=== PATIENT | female | born 1995 | race Two or more races ===

== ENCOUNTER 2019-05-15 18:37 | Emergency (ER) | payer SELFPAY ==
[~2019-05-15] VITALS: Ht 170.2 cm; Wt 82.6 kg
[2019-05-15 18:50] VITALS: BP 143/87
--- NOTE | 2019-05-15 19:00 | NUR ---
ED Nurse Note: Patient walked into ED from home c/o right earache since yesterday, 05/14/19. patient reports she took motrin 600mg at 3:3pm today, temperature upon triage was 101.4F. patient is alert awake x4 ambulatory steady gait, breathing unlabored and speaking in full sentences.
--- NOTE | 2019-05-15 19:07 | NUR ---
HAND-OFF: Report given to Karma ELLIOTT. Nicole PERLA at bedside.
--- NOTE | 2019-05-15 19:10 | NUR ---
ED Nurse Note: urine sent to lab
[2019-05-15 19:56] LABS: APPEARANCE,URINE CLEAR; BILIRUBIN, URINE NEGATIVE (NEGATIVE); COLOR,URINE PALE YELLOW; GLUCOSE, URINE (UA) NEGATIVE (NEGATIVE); KETONES,URINE NEGATIVE (NEGATIVE); LEUKOCYTE ESTERASE ,URINE 1+ (NEGATIVE); NITRITE,URINE NEGATIVE (NEGATIVE); PH,URINE 8 (4.5-8.0); PROTEIN,URINE NEGATIVE (NEGATIVE); UROBILINOGEN,URINE NORMAL MG/DL (0.0-1.0)
--- NOTE | 2019-05-15 20:10 | Emergency Room Report ---
History of Present Illness General Chief Complaint: Earache Source: Patient Present Illness HPI 24 YO female presents to the ED c/O 02/16 in severity pain, swelling and tenderness of the right ear since yesterday. Pt. also reports fevers and chills. She states she has been taking Advil every 6 hours, her last dose was approx. 3:30pm today. She also reports urinary frequency and fatigue, She denies abdominal pain, tenderness, N/V, constipation or diarrhea. She denies or suspicion of . Pt. denies ST, cough, BARRON, neck pain/ stiffness, photophobia or mucus production. She denies rashes. Denies ringing of the ears. PT. denies q-tip use or ear d/c. No other aggravating or relieving factors at this time. Allergies: Coded Allergies: No Known Allergies (Unverified , 05/15/19) Patient History Past Medical History: see triage record Past Surgical History: none Pertinent Family History: none Now: No Immunizations: UTD Reviewed Nursing Documentation: PMH: Agreed; PSxH: Agreed Nursing Documentation-PMH Past Medical History: No Stated History Review of Systems All Other Systems: negative except mentioned in HPI Physical Exam Vital Signs Date Time Temp Pulse Resp B/P (MAP) Pulse Ox O2 Delivery O2 Flow Rate FiO2 05/15/19 18:50 101.4 110 18 143/87 99 Room Air Sp02 EP Interpretation: reviewed, normal General Appearance: no apparent distress, alert, GCS 15, non-toxic Head: normocephalic, atraumatic Eyes: bilateral eye normal inspection, bilateral eye PERRL ENT: hearing grossly normal, normal voice, uvula midline, moist mucus membranes , other - RIght canal is swollen, with notable d/c, and external ear tenderness. preauricular LAD. TM is difficult to visualize. Neck: full range of motion, no bony tend Respiratory: lungs clear, normal breath sounds, speaking full sentences Cardiovascular #1: regular rate, rhythm Gastrointestinal: non tender, soft Genitourinary: normal inspection, no CVA tenderness Musculoskeletal: gait/station normal, normal range of motion, non-tender Neurologic: alert, oriented x3, responsive, motor strength/tone normal, sensory intact, speech normal, grossly normal Psychiatric: judgement/insight normal Skin: no rash Lymphatic: other - right preauricular LAD Medical Decision Making PA Attestation Dr. Hernández is my supervising Physician whom patient management has been discussed with. Diagnostic Impression: Primary Impression: Urinary tract infection Qualified Codes: N30.00 - Acute cystitis without hematuria Additional Impression: Otitis externa Qualified Codes: H60.501 - Unspecified acute noninfective otitis externa, right ear ER [facility] QUALITY MEASURES: Pt. with dx of OE was rx'd oral and otic abx because--> TWO TYPES OF BACTERIAL INFECTIONS : UTI as well as RIGHT OE. 24 YO female presents to the ED c/O 02/16 in severity pain, swelling and tenderness of the right ear since yesterday. Pt. also reports fevers and chills. She states she has been taking Advil every 6 hours, her last dose was approx. 3:30pm today. She also reports urinary frequency and fatigue, She denies dysuria, genital lesions, or hematuria. She denies abdominal pain, tenderness, N/V, constipation or diarrhea. She denies or suspicion of . Pt. denies ST, cough, BARRON, neck pain/stiffness, photophobia or mucus production. She denies rashes. Denies ringing of the ears. PT. denies q-tip use or ear d/c. No other aggravating or relieving factors at this time. Ddx considered but are not limited to UTi , Pyelo, STI, Stone, Cystitis, OE/OM, zoster, ear fb just to name a few. Vital signs: Pt. is tachycardic and febrile H&PE are most consistent with: TWO TYPES OF BACTERIAL INFECTIONS : UTI as well as RIGHT OE ORDERS: - UA labs are attached - elevated WBC's with presence of bacteria ED INTERVENTIONS: -Tylenol PO DISCHARGE: At this time pt. is stable for d/c to home. Will provide printed patient care instructions, and any necessary prescriptions. Care plan and follow up instructions have been discussed with the patient prior to discharge. Labs Test 05/15/19 19:25 Urine Color Pale yellow Urine Appearance Clear Urine pH 8 (4.5-8.0) Urine Specific [place] 1.010 (1.005-1.035) Urine Protein Negative (NEGATIVE) Urine Glucose (UA) Negative (NEGATIVE) Urine Ketones Negative (NEGATIVE) Urine Blood Negative (NEGATIVE) Urine Nitrite Negative (NEGATIVE) Urine Bilirubin Negative (NEGATIVE) Urine Urobilinogen Normal MG/DL (0.0-1.0) Urine Leukocyte Esterase 1+ (NEGATIVE) Urine RBC 0-2 /HPF (0 - 2) Urine WBC 5-10 /HPF (0 - 2) Urine Squamous Epithelial Cells Moderate /LPF (NONE/OCC) Urine Bacteria Few /HPF (NONE) Last Vital Signs Date Time Temp Pulse Resp B/P (MAP) Pulse Ox O2 Delivery O2 Flow Rate FiO2 05/15/19 18:50 101.5 110 18 143/87 (105) 99 Room Air Status: improved Disposition: HOME, SELF-CARE Condition: Stable Scripts Ibuprofen* (MOTRIN*) 600 Mg Tablet 600 MG ORAL THREE TIMES A DAY, #30 TAB 0 Refills Prov: Nicole Hanson 05/15/19 Acetaminophen* (TYLENOL EXTRA STRENGTH*) 500 Mg Tablet 500 MG ORAL Q6H, #20 TAB 0 Refills Prov: Nicole Hanson 05/15/19 Cephalexin* (KEFLEX*) 500 Mg Capsule 500 MG ORAL EVERY 12 HOURS for 7 Days, #14 CAP 0 Refills Prov: Nicole Hanson 05/15/19 Ciprofloxacin Hcl/Dexameth (CIPRODEX OTIC SUSPENSION) 7.5 Ml Drops.susp 4 DROP RIGHT EAR TWICE A DAY for 7 Days, #7.5 ML Prov: Nicole Hanson 05/15/19 Referrals: NOT CHOSEN IPA/MD,REFERRING (PCP) Departure Forms: Return to Work Return to Work Date: May 19, 2019 Work Restrictions: None Other Restrictions: May return Sooner if Symptoms have resolved. Return to Full Activity: May 19, 2019 Patient Instructions: Otitis Externa Additional Instructions: Take medications as directed. Follow up with a Primary Care Provider in 3-5 days, even if your symptoms have resolved. Return sooner to ED if new symptoms occur, or current symptoms become worse. - Please note that this Emergency Department Report was dictated using [employer] operator technology software, occasionally this can lead to erroneous entry secondary to interpretation by the dictation equipment. Nicole Hanson May 15, 2019 20:10
[2019-05-15] MEDS ORDERED: CIPRODEX OTIC7.5 M1 RIGHT EAR (20:12)
[2019-05-15] MEDS ORDERED: CEPHALEXIN500 MG ORAL (20:12)
[2019-05-15] MEDS ORDERED: IBUPROFEN600 MG ORAL (20:12)
[2019-05-15] MEDS ORDERED: TYLENOL EXTRA500 MG ORAL (20:12)
[2019-05-15 20:18] VITALS: BP 135/84
--- NOTE | 2019-05-15 20:19 | NUR ---
ER DISCHARGE NOTE: Patient is cleared to be discharged per ERMD, pt is aox4, on room air, with stable vital signs. pt was given dc and prescription instructions, pt was able to verbalize understanding, pt id band removed. pt is able to ambulate with steady gait. pt took all belongings.
== END 2019-05-15 20:19 | disposition home or self-care (01) ==
LOC: EMR 19:24
DX: N30.00 Acute cystitis without hematuria (principal); H60.501 Unspecified acute noninfective otitis externa, right ear
CPT/HCPCS: 81003; 99283